=== PATIENT | male | born 1995 | race Hispanic/Latino ===

== ENCOUNTER 2024-06-15 18:58 | Emergency (ER) | payer SELFPAY ==
[2024-06-15 19:05] VITALS: BP 153/88
[2024-06-15 19:28] LABS: % Basophils 0.8 % (0-2); % Eosinophils 2.5 % (0-6); % Immature Granulocytes 0.5 % (0-0.5); % Lymphocytes 39.1 % (20.5-51.1); % Monocytes 7.8 % (1.7-9.3); % Neutrophils 49.3 % (42.2-75.2); Absolute Basophils 0.1 10^3/uL (0-0.2); Absolute Eosinophils 0.2 10^3/uL (0-0.7); Absolute Immature Granulocytes 0.1 10^3/uL (0-0.05); Absolute Lymphocytes 3.6 10^3/uL (1.2-3.4); Absolute Monocytes 0.7 10^3/uL (0.1-0.6); Absolute Neutrophils 4.6 10^3/uL (1.4-6.5); Hematocrit 43.8 % (39.0-52.0); Hemoglobin 15.1 g/dL (13.0-18.0); Mean Corp Hgb Conc. 34.5 g/dL (33.0-37.0); Mean Corpuscular Hgb 32.3 pg (27.0-31.0); Mean Corpuscular Volume 93.6 fL (80.0-94.0); Nucleated Red Blood Cells % 0 % (-); Platelet Count 282 10^3/uL (130-400); Red Blood Cell Count 4.68 10^6/uL (4.70-6.10); Red Cell Dist. Width 12.4 % (11.5-14.5); White Blood Cell Count 9.3 10^3/uL (4.8-10.8)
[2024-06-15 19:36] LABS: ALT (SGPT) 22 U/L (0-50); AST (SGOT) 23 U/L (17-59); Albumin 4.8 g/dl (3.5-5.0); Alkaline Phosphatase 105 U/L (38-126); Blood Urea Nitrogen 16 mg/dl (9-20); Calcium 9.9 mg/dl (8.4-10.2); Carbon Dioxide 25 mmol/L (22-30); Chloride 104 mmol/L (98-107); Glucose 111 mg/dl (70-99); Lipase 95 U/L (23-300); Potassium 3.9 mmol/L (3.5-5.1); Sodium 140 mmol/L (135-145); Total Bilirubin 0.4 mg/dl (0.2-1.3); Total Protein 7.8 g/dl (6.3-8.2); eGFR > 60.00
[2024-06-15 19:47] LABS: Troponin I < 0.012 ng/ml
[2024-06-15 20:05] VITALS: BP 115/74
[2024-06-15 21:15] VITALS: BP 128/73
--- NOTE | 2024-06-15 21:37 | ED.GENMED ---
History of Present Illness
General
Chief Complaint: Heart Rate Problem
Source: patient
Exam Limitations: none
Time Seen by Provider: 06/15/24 20:43
Nursing documentation reviewed up to this point in time: agreed with
History of Present Illness
History of Present Illness:
Patient presents to ED secondary to intermittent left-sided chest pain over the past 2 weeks. Chest pain described as sharp/burning, nonradiating, brought on with certain types of food, i.e. spicy/greasy/pasta, sometimes associated with
palpitations. Denies shortness of breath. Denies nausea, vomiting, or diarrhea. Denies fever or chills. Denies trauma. Denies back pain. Denies leg pain or swelling. Denies recent travel or surgery. Patient does admit to drinking alcohol
frequently, but has stopped drinking 1 month ago. Denies family history of heart disease. Denies smoking.
Review of Systems
Review of Systems
Allergies reviewed?: Yes
All Other Systems: ROS reviewed and negative except as documented in HPI and ROS
Constitutional: Reports no symptoms; Denies fever
Respiratory: Reports no symptoms; Denies trouble breathing
Cardiac: Reports chest pain; Denies diaphoresis, palpitations or syncope
ABD/GI: Reports vomiting and diarrhea; Denies abdominal pain
Musculoskeletal: Reports no symptoms
Skin: Reports no symptoms
Neurological: Reports no symptoms
Phy Exam
Physical Exam
Physical Exam:
Physical Exam
General: no apparent distress, not acutely ill. afebrile
Head: nc/at. eomi
Neck: supple. normal range of motion.
Heart: s1/s2 regular rate and rhythm.
Lungs: no acute respiratory distress. clear bilaterally
Abdomen: normal bowel sounds. mild epigastric tenderness to palpation
Neuro: alert and oriented x 3. no focal neurological deficits
Skin: no rash
Psychiatric: well kept. interactive and cooperative
Extremities: no edema. no calf tenderness.
Course
Orders/Labs/Results
Orders:
Orders
06/15/24 18:59
ECG [Electrocardiogram (*1)] Urgent
Reason for Study: Tachycardia
EKG- Treatment ONCE
06/15/24 19:12
Complete Blood Count/With Diff Urgent
Comprehensive Metabolic Panel Urgent
Lipase Urgent
Troponin I Urgent
06/15/24 20:23
EKG with chest pain [ECG as needed] As Directed
ECG as needed for:: Chest Pain
06/15/24 22:06
CR Chest - 2 Views Urgent
Comment:
Reason For Exam: chest pain
Abnormal Lab Results
06/15/24
19:12
RBC 4.68 L 10^6/uL
(4.70-6.10)
MCH 32.3 H pg
(27.0-31.0)
Abs Immat Gran (auto) 0.1 H 10^3/uL
(0-0.05)
Absolute Lymphs (auto) 3.6 H 10^3/uL
(1.2-3.4)
Absolute Monos (auto) 0.7 H 10^3/uL
(0.1-0.6)
Glucose 111 H mg/dl
(70-99)
06/15/24 19:12
06/15/24 19:12
Vital Signs
Initial and Last Documented VS:
Initial Vital Signs
Temp Pulse Resp BP Pulse Ox
98.9 F 76 18 153/88 100
06/15/24 19:05 06/15/24 19:05 06/15/24 19:05 06/15/24 19:05 06/15/24 19:05
Last Documented Vital Signs
Temp Pulse Resp BP Pulse Ox
98 F 81 16 128/73 100
06/15/24 20:05 06/15/24 21:15 06/15/24 21:15 06/15/24 21:15 06/15/24 21:15
MDM/Problems Addressed
MDM/Problems Addressed:
Patient with an unremarkable workup in ED, including blood work and EKG.
History and exam inconsistent with ACS, likely secondary to gastritis versus ulcer, as pain is reproducible, also exacerbated by meals. As such, patient will be advised to modify his diet, along with PPI as well as Carafate use short-term, along
with PCP follow-up as an outpatient. As patient is uninsured, patient will be referred to [facility] for reevaluation.
*EKG
Interpreted by ED Provider?: Yes
EKG Intrepretation Date: 06/15/24
Heart Rate: 95
Rate: normal
Rhythm: sinus
[place]: normal axis
*Critical Care Note
Total Time (30-74mins, 75-104mins- exclusive of procedures): Not Applicable
ED Attending Note
-
Portions of this chart may have been created with voice recognition software.� Occasional wrong word or��sound alike� substitutions may have occurred due to the inherent limitations of voice recognition software.
Discharge Plan
Departure
Patient Disposition: Home (Routine Discharge)
Date of Disposition: 06/15/24
Time of Disposition: 22:36
Patient with high blood pressure during this ER visit?: Yes
Condition: Good
Discharge Problem:
Gastritis and duodenitis
Instructions: [place] diet, Gastritis - ED discharge instructions
Prescriptions:
New
sucralfate [Carafate] 100 mg/mL suspension
10 ml PO ACHS Qty: 300 0RF
Referrals:
[facility] [Outside]
NONE,* [Family Provider] -
Activity Restrictions/Additional Instructions:
As discussed, please follow-up with referred medical clinic for further evaluation and treatment. In the meantime, recommend diet modification, along with prescribed medication as well as PPI, i.e. Protonix/Prilosec/Pepcid/Nexium daily.
Interventions
Interventions:
*Risk Screen - Suicide Last Done: 06/15/24 19:07
*General Assessment Last Done: 06/15/24 19:07
*Neglect/Abuse Screening Last Done: 06/15/24 19:07
*ED- Fall Risk Assessment Last Done: 06/15/24 20:09
*ED COVID-19 Vaccine History Last Done: 06/15/24 19:06
*Nursing Disposition Last Done: 06/15/24 22:49
ED- Cardiac Assessment Last Done: 06/15/24 20:06
ED- Pulmonary Assessment Last Done: 06/15/24 20:06
Discharge Date and Time
Discharge Date/Time: 06/15/24 22:50
Print Language: DIVEHI
== END 2024-06-15 22:50 | disposition home or self-care (01) ==
LOC: EMR 18:58
PROVIDERS: Student in an Organized Health Care Education/Training Program; EMERGENCY PHYSICIAN Emergency Medicine
DX: K29.70 Gastritis, unspecified, without bleeding (principal); K29.80 Duodenitis without bleeding; R03.0 Elevated blood-pressure reading, without diagnosis of hypertension
CPT/HCPCS: 99285; 71046; 80053; 83690; 84484; 85025; 93005

== ENCOUNTER 2024-06-20 22:35 | Emergency (ER) | payer SELFPAY ==
[2024-06-20 22:39] VITALS: BP 108/68
[2024-06-20 23:34] VITALS: BP 110/66
--- NOTE | 2024-06-20 23:53 | ED.GENMED ---
History of Present Illness
General
Chief Complaint: Chest Pain
Source: patient and previous hospital records (ED visit for similar complaint June 15.)
Exam Limitations: other (Patient is Mohawk-speaking, language line vamp marker utilized)
Time Seen by Provider: 06/20/24 22:49
History of Present Illness
History of Present Illness:
This is a 28-year-old Mohawk-speaking gentleman with no significant past medical history who presents to the ED with complaints of ongoing intermittent chest pain, palpitations, shortness of breath that began at least 3 weeks ago. Chest pain is
worse with eating and drinking, worse with lying supine and occasionally wakes him from sleep associated with palpitations feeling that his heart is beating fast and pounding in nature as well as associated with lightheadedness, shortness of breath,
flushing.
Evaluated in this ED June 15 and at that time was not complaining of shortness of breath. ED workup unremarkable including normal EKG, unremarkable laboratory studies. Was prescribed Carafate suspension which he has been taking 4 times daily
without relief.
He continues to to work installing [employer] and admits to worsening symptoms 2 days ago prompting ED visit at [facility] where he reportedly had an unremarkable evaluation and was given something to drink with complete but temporary relief of
his chest pain. He was prescribed omeprazole 40 mg daily which he filled and has been taking.
He has been attempting to watch his diet, has been avoiding spicy or fried foods, he has had no alcohol intake for at least the past month.
He continues with intermittent chest pain, shortness of breath, palpitations, worse tonight prompting return to the ED.
He denies leg pain or swelling.
No recent travel.
Past History
Past History
ED Past Medical History: None
ED Past Surgical History: None
Social History
Tobacco: Non-smoker
Alcohol: Occasional (No alcohol consumption for at least the past month)
Drug: None
Personal:
Living: with family
Employment: Employed (Installs fences)
Family History
Family History: Other (Noncontributory); Negative CAD
Phy Exam
Physical Exam
Physical Exam:
GENERAL: 28-year-old overweight gentleman appears his stated age, awake and alert, mildly anxious but easily communicative and overall no acute distress. is accompanying.
EYE: anicteric
NECK: Supple, nontender, no meningismus, no significant adenopathy.
ENT: oral mucosa is moist. No rhinorrhea.
CARDIAC: Regular rate and rhythm. no murmur. Mild tenderness left upper chest wall. No crepitus nor palpable bony abnormality.
LUNGS: Clear breath sounds bilaterally, no acute respiratory distress, no wheezes/rales/rhonchi
ABDOMEN: Soft, nondistended, moderate tenderness epigastric region, no r/g, no cvat. normoactive BS.
NEUROLOGICAL: Alert and oriented x3, no focal neuro deficits. Gait is steady.
SKIN: Warm and dry, normal color, skin intact. No rash.
MUSCULOSKELETAL: No C/C/E. peripheral pulses are full and equal b/l. No palpable tenderness.
PSYCH: Normal and appropriate interaction.
Scores
Heart Score for Chest Pain Patients
STEMI patient?: No
History: Slightly or Non-Suspicious
ECG: Normal
Age: </= 45 years
Risk Factors: No Risk Factors
Troponin: </= Normal Limit
Heart Score for Chest Pain Patients: 0
Heart Score Risk: 2.5% MACE over next 6 weeks
Course
Orders/Labs/Results
Orders:
Orders
06/20/24 22:42
Electrocardiogram (*1) Urgent
Reason for Study: Chest Pain
EKG- Treatment ONCE
06/20/24 22:49
Electrocardiogram (*1) Urgent
Reason for Study: Chest Pain
EKG- Treatment ONCE
06/20/24 23:26
US Abdomen Complete/Upper Urgent
Comment:
Reason For Exam: intermittent severe epigastric pain
06/20/24 23:33
Comprehensive Metabolic Panel Urgent
D-Dimer Urgent
Lipase Urgent
TSH Reflex To Free T4 Urgent
Comment: ADD ON
Troponin I Urgent
06/20/24 23:59
Add On- LAB Urgent
Tests Added?: TH w reflex to free T-4
06/21/24 00:10
Pantoprazole [Protonix IV] 40 mg IV NOW STA
06/21/24 01:08
Mag Hydrox/Al Hydrox/Simeth [Maalox] 30 ml Phenobarb/Hyoscy/Atropine/Scop [] 10 ml Viscous Lidocaine 2% [Xylocaine Viscous Cup] 10 ml PO NOW
06/21/24 01:22
Mag Hydrox/Al Hydrox/Simeth [Maalox] 30 ml .ROUTE .STK-MED ONE
Phenobarb/Hyoscy/Atropine/Scop [] 10 ml .ROUTE .STK-MED ONE
Viscous Lidocaine 2% [Xylocaine Viscous Cup] 15 ml .ROUTE .STK-MED ONE
Abnormal Lab Results
06/20/24
23:33
Glucose 120 H mg/dl
(70-99)
06/20/24 23:33
Vital Signs
Initial and Last Documented VS:
Initial Vital Signs
Temp Pulse Resp BP Pulse Ox
97.5 F 70 16 108/68 97
06/20/24 22:39 06/20/24 22:39 06/20/24 22:39 06/20/24 22:39 06/20/24 22:39
Last Documented Vital Signs
Temp Pulse Resp BP Pulse Ox
97.5 F 56 16 107/65 96
06/20/24 22:39 06/21/24 01:30 06/21/24 01:30 06/21/24 01:00 06/21/24 01:30
MDM/Problems Addressed
Differential Diagnosis Includes:
Concern for acute gastritis/GERD, pancreatitis, biliary colic, ACS, tacky-arrhythmia. Although no significant risk factors other consideration is PE.
EKG similar and unchanged from previous.
Will recheck LFTs, lipase, troponin as well as check D-dimer.
Will check abdominal ultrasound.
Will continue kaiako kura ka[place]apa maori.
*Radiology
Radiology exam reviewed: radiology read reviewed
*Pulse Oximetry
Patient hypoxic: no
*EKG
Interpreted by ED Provider?: Yes
Interpretation: normal
Comparison EKG: no changes (Unchanged from previous June 15, 2024)
Rate: normal
Rhythm: sinus
[place]: normal axis
Interval: normal interval
QRS Pattern: normal QRS
Ischemia: no ischemia
*Sealing And Canceling Machine Operator Interpretation
Rate: normal
Interpretation: normal
Rhythm: sinus
*Critical Care Note
Total Time (30-74mins, 75-104mins- exclusive of procedures): Not Applicable
Update Note
Update Note:
01:55
Patient resting comfortably. Sleeps when undisturbed.
Chest pain has again resolved after GI cocktail.
Monitor continues to show normal sinus rhythm without ectopy nor arrhythmia.
Labs are unremarkable including negative D-dimer. Normal troponin. Normal LFTs. Normal TSH.
Abdominal ultrasound shows slightly echogenic liver suggestive of fatty infiltration without focal lesion. Contracted gallbladder with possible tiny stones and sludge but no wall thickening nor focal tenderness. Normal common bile duct. Kidneys
are unremarkable. Pancreas obscured by bowel gas.
As pain is temporized with GI cocktail, biliary colic is much less likely.
Recommend continuing omeprazole.
Continue bland diet avoiding spicy or fried foods, avoid red sauce, avoid caffeinated beverages, continue to avoid alcoholic beverages.
Recommend [id number] antacid such as Mylanta or Maalox as needed.
[facility]-up with [facility] as already planned.
ED Attending Note
-
Portions of this chart may have been created with voice recognition software.� Occasional wrong word or��sound alike� substitutions may have occurred due to the inherent limitations of voice recognition software.
Discharge Plan
Departure
Patient Disposition: Home (Routine Discharge)
Date of Disposition: 06/21/24
Time of Disposition: 01:57
Patient with high blood pressure during this ER visit?: No
Condition: Good
Discharge Problem:
acute gastritis with GERD
Instructions: Gastritis, Acid Reflux and GERD in Adults (DC)
Prescriptions:
No Action
sucralfate [Carafate] 100 mg/mL suspension
10 ml PO ACHS Qty: 300 0RF
Referrals:
[facility] - Call in 1-3 days for appt
UNKNOWN - PT DOES,NOT KNOW [Family Provider] -
Interventions
Interventions:
*Risk Screen - Suicide Last Done: 06/20/24 22:41
*General Assessment Last Done: 06/21/24 01:31
*Neglect/Abuse Screening Last Done: 06/20/24 22:41
*ED- Fall Risk Assessment Last Done: 06/21/24 01:31
*ED COVID-19 Vaccine History Last Done: 06/21/24 01:31
ED- Cardiac Assessment Last Done: 06/20/24 23:00
Discharge Date and Time
Print Language: CITIZEN OF [place]
[2024-06-20 23:59] LABS: ALT (SGPT) 17 U/L (0-50); AST (SGOT) 19 U/L (17-59); Alkaline Phosphatase 91 U/L (38-126); Blood Urea Nitrogen 13 mg/dl (9-20); Calcium 9.3 mg/dl (8.4-10.2); Carbon Dioxide 26 mmol/L (22-30); Chloride 107 mmol/L (98-107); Glucose 120 mg/dl (70-99); Lipase 133 U/L (23-300); Potassium 3.9 mmol/L (3.5-5.1); Sodium 138 mmol/L (135-145); Total Bilirubin 0.4 mg/dl (0.2-1.3); Total Protein 6.3 g/dl (6.3-8.2); eGFR > 60.00
[2024-06-21] VITALS: BP 108/72
[2024-06-21 00:04] LABS: D-Dimer < 0.27 ug/mlFEU (0.00-0.50)
[2024-06-21 00:10] LABS: Troponin I < 0.012 ng/ml
[2024-06-21] MEDS: PROTONIX IV 40 MG IV (00:15)
[2024-06-21 00:52] VITALS: BP 114/71
[2024-06-21 00:57] LABS: TSH Reflex To Free T4 3.36 uIU/ml (0.47-4.68)
[2024-06-21 01:00] VITALS: BP 107/65
[2024-06-21] MEDS: MAALOX 30 PO (01:23)
[2024-06-21 02:00] VITALS: BP 103/65
== END 2024-06-21 02:34 | disposition home or self-care (01) ==
LOC: EMR 22:35
PROVIDERS: EMERGENCY PHYSICIAN Emergency Medicine
DX: K29.00 Acute gastritis without bleeding (principal); K21.9 Gastro-esophageal reflux disease without esophagitis; R07.89 Other chest pain; R00.2 Palpitations; R06.02 Shortness of breath; Z79.899 Other long term (current) drug therapy
CPT/HCPCS: 99284; 96374; 76700; 80053; 83690; 84443; 84484; 85379; 93005

== ENCOUNTER → 2024-08-25 14:58 | Outpatient (REF) | payer OTHER, SELFPAY | LOC: CLINIC 14:58 | PROVIDERS: ATTENDING PHYSICIAN Internal Medicine | DX: R00.2 Palpitations (principal) | CPT/HCPCS: 93306 ==

== ENCOUNTER 2024-09-28 16:36 | Emergency (ER) | payer SELFPAY ==
[2024-09-28 16:47] VITALS: BP 118/64
[2024-09-28 17:09] LABS: Hematocrit 39.8 % (39.0-52.0); Hemoglobin 13.6 g/dL (13.0-18.0); Mean Corp Hgb Conc. 34.2 g/dL (33.0-37.0); Mean Corpuscular Volume 91.9 fL (80.0-94.0); Nucleated Red Blood Cells % 0 % (-); Platelet Count 230 10^3/uL (130-400); Red Cell Dist. Width 12.7 % (11.5-14.5)
[2024-09-28 17:32] LABS: ALT (SGPT) 15 U/L (0-50); AST (SGOT) 18 U/L (17-59); Albumin 4.5 g/dl (3.5-5.0); Alkaline Phosphatase 75 U/L (38-126); Blood Urea Nitrogen 12 mg/dl (9-20); Calcium 9.2 mg/dl (8.4-10.2); Carbon Dioxide 24 mmol/L (22-30); Chloride 104 mmol/L (98-107); Glucose 106 mg/dl (70-99); Potassium 4.1 mmol/L (3.5-5.1); Sodium 136 mmol/L (135-145); Total Protein 6.9 g/dl (6.3-8.2); eGFR > 60.00
[2024-09-28 17:43] LABS: Troponin I < 0.012 ng/ml
--- NOTE | 2024-09-28 19:28 | ED.GENMED ---
History of Present Illness
General
Chief Complaint: Chest Pain
Time Seen by Provider: 09/28/24 18:58
History of Present Illness
History of Present Illness:
29-year-old male presents to the emergency department for evaluation of frequent bouts of left-sided chest pain that radiates to the left scapula occurring over the past 4 to 5 months. Has been seen in this emergency department several times for
these complaints. He did follow-up with his primary healthcare clinic and was referred for an echocardiogram, this was completed in August and was unremarkable. Denies any obvious provoking or palliating factors. Was driving when the episode
occurred today. Currently feels improved
Past History
Past History
ED Past Medical History: None
ED Past Surgical History: None
Social History
Tobacco: Non-smoker
Alcohol: Occasional (No alcohol consumption for at least the past month)
Drug: None
Personal:
Living: with family
Employment: Employed (Installs fences)
Family History
Family History: Other (Noncontributory); Negative CAD
Review of Systems
Review of Systems
Allergies reviewed?: Yes
All Other Systems: ROS reviewed and negative except as documented in HPI and ROS
Phy Exam
Physical Exam
Physical Exam:
GEN: Well appearing, NAD, WDWN
HEENT: Oral mucosa moist, no scleral icterus
Cardiac: Regular rate
Lung: No respiratory distress, no tachypnea
MSK: No gross deformity or injuries
Skin: Good color, no pallor or jaundice, no rashes
Neuro: AO x3, moves all extremities freely
Psych: Calm, cooperative
Scores
Heart Score for Chest Pain Patients
STEMI patient?: No
History: Slightly or Non-Suspicious
ECG: Normal
Age: </= 45 years
Risk Factors: No Risk Factors
Troponin: </= Normal Limit
Heart Score for Chest Pain Patients: 0
Heart Score Risk: 2.5% MACE over next 6 weeks
Course
Orders/Labs/Results
Orders:
Orders
09/28/24 16:37
EKG [Electrocardiogram (*1)] Urgent
Reason for Study: Chest Pain
EKG- Treatment ONCE
09/28/24 16:58
Complete Blood Count/With Diff Urgent
Comprehensive Metabolic Panel Urgent
Troponin I Urgent
Abnormal Lab Results
09/28/24
16:58
RBC 4.33 L 10^6/uL
(4.70-6.10)
MCH 31.4 H pg
(27.0-31.0)
Abs Immat Gran (auto) 0.1 H 10^3/uL
(0-0.05)
Immature Gran % 0.9 H %
(0-0.5)
Glucose 106 H mg/dl
(70-99)
09/28/24 16:58
09/28/24 16:58
Vital Signs
Initial and Last Documented VS:
Initial Vital Signs
Temp Pulse Resp BP Pulse Ox
98.5 F 88 18 118/64 97
09/28/24 16:47 09/28/24 16:47 09/28/24 16:47 09/28/24 16:47 09/28/24 16:47
Last Documented Vital Signs
Temp Pulse Resp BP Pulse Ox
98.5 F 68 20 115/70 97
09/28/24 16:47 09/28/24 19:42 09/28/24 19:42 09/28/24 19:42 09/28/24 19:42
MDM/Problems Addressed
MDM/Problems Addressed:
I suspect the patient has either a somatoform disorder versus transient cardiac dysrhythmia. Recommend he obtain a Holter monitor as an outpatient which will need to be coordinated through the [facility]
Comment
Comment:
EKG independently interpreted by me shows normal sinus rhythm at a rate of [address] changes concerning for ischemia, appears similar to EKG from June 2024
*Pulse Oximetry
SaO2: 97
Oxygen Mode of Delivery: Room air
Patient hypoxic: no
*Critical Care Note
Total Time (30-74mins, 75-104mins- exclusive of procedures): Not Applicable
ED Attending Note
-
Portions of this chart may have been created with voice recognition software.� Occasional wrong word or��sound alike� substitutions may have occurred due to the inherent limitations of voice recognition software.
Discharge Plan
Departure
Patient Disposition: Home (Routine Discharge)
Date of Disposition: 09/28/24
Time of Disposition: 19:28
Patient with high blood pressure during this ER visit?: No
Discharge Problem:
Heart palpitations
Instructions: Palpitations - ED discharge instructions
Prescriptions:
No Action
sucralfate [Carafate] 100 mg/mL suspension
10 ml PO ACHS Qty: 300 0RF
Referrals:
Stewart Merino MD [Active, Internal Medicine] - Follow up in 2-3 days
NONE,* [Family Provider, Internal Medicine]
Activity Restrictions/Additional Instructions:
No ecocardiograma de arcadio fue normal; sin embargo, dado que ivonne s�ntomas son intermitentes, creo que le beneficiar� un Holter, un monitor card�aco port�til de 24 a 48 horas. [place] podr�a detectar mejor enid arritmia card�avelino, o al menos descartarla.
Por favor, contin�e con no seguimiento yelitza en la [facility].
Interventions
Interventions:
*Risk Screen - Suicide Last Done: 09/28/24 16:47
*General Assessment Last Done: 09/28/24 16:47
*Nursing Disposition Last Done: 09/28/24 19:43
ED- Cardiac Assessment Last Done: 09/28/24 19:42
Discharge Date and Time
Discharge Date/Time: 09/28/24 19:43
Print Language: ANDORRAN
[2024-09-28 19:42] VITALS: BP 115/70
== END 2024-09-28 19:43 | disposition home or self-care (01) ==
LOC: EMR 16:36
PROVIDERS: Emergency Medicine; EMERGENCY PHYSICIAN Emergency Medicine
DX: R00.2 Palpitations (principal); R07.89 Other chest pain; M25.512 Pain in left shoulder
CPT/HCPCS: 99283; 80053; 84484; 85025; 93005